=== PATIENT | male | born 1975 | race Caucasian/White ===

== ENCOUNTER 2019-06-12 07:18 | Day surgery (SDC) | payer BC ==
[2019-06-08 12:09] LABS: ALBUMIN 3.9 G/DL (3.4-5.0); ALBUMIN/GLOBULIN RATIO 1.1 (1.1-1.5); ALKALINE PHOSPHATASE 53 IU/L (46-116); BLOOD UREA NITROGEN 15 MG/DL (7-18); BUN/CREATININE RATIO 15.2 (5.4-32.0); CALCIUM 8.5 MG/DL (8.5-10.1); CHLORIDE 103 MMOL/L (99-107); CREATININE 0.99 MG/DL (0.60-1.10); PRE OP ALT 39 U/L (30-65); PRE OP ANION GAP 3 (8-16); PRE OP AST 22 U/L (10-37); PRE OP BILIRUB, TOTAL 0.4 MG/DL (0.0-1.0); PRE OP GLUCOSE 96 MG/DL (70-104); PRE OP POTASSIUM 4.3 MMOL/L (3.4-5.1); PRE OP SODIUM 137 MMOL/L (135-145); TOTAL CARBON DIOXIDE 30.7 MMOL/L (24-32); TOTAL PROTEIN 7.3 G/DL (6.4-8.2); eGFR 82 ML/MIN
[2019-06-08 12:10] LABS: EOSINOPHILS # (AUTO) 0.1 X10'3 (0-0.9); EOSINOPHILS % (AUTO) 2.7 % (0-6); LYMPHOCYTES # (AUTO) 1.2 X10'3 (1.1-4.8); LYMPHOCYTES % (AUTO) 25.7 % (21-51); MEAN CORPUSCULAR HEMOGLOBIN 33.4 PG (27.0-31.0); MEAN CORPUSCULAR HGB CONC 34.9 g/dL (33.0-36.5); MEAN CORPUSCULAR VOLUME 95.8 FL (78-98); MEAN PLATELET VOLUME 8.4 FL (7.4-10.4); MONOCYTES # (AUTO) 0.5 X10'3 (0-0.9); NEUTROPHILS # (AUTO) 2.6 X10'3 (1.8-7.7); NEUTROPHILS % (AUTO) 58.6 % (42-75); PRE OP HEMATOCRIT 41.5 % (42.0-52.0); PRE OP HEMOGLOBIN 14.5 g/dL (14.0-17.9); PRE OP PLATELET COUNT 190 X10'3 (140-440); RED BLOOD COUNT 4.33 X10'6 (4.70-6.10); RED CELL DISTRIBUTION WIDTH 12.9 % (11.5-14.5)
[~2019-06-12] VITALS: Ht 172.7 cm; Wt 128.8 kg
[~2019-06-12 07:18] MED LIST: BUPIVAcaine/PF 2.5mg/ml (0.25%) 10ml vial ONE; CYCL-1 PO; GABA-532 PO; IBUP-1986 PO; LIDOcaine 0.5% (5mg/ml) 50ml vial ONE
[2019-06-12] MEDS ORDERED: ceFAZolin inj. 2,000 MG in dextrose 5%-water 100 ML IV ONE (07:30)
[2019-06-12] MEDS ORDERED: famotidine 20mg tablet PO ONE (07:30)
[2019-06-12] MEDS ORDERED: ringers solution, lacted 1,000 ML IV SCH ×2 (07:30→08:47)
[2019-06-12] MEDS ORDERED: ceFAZolin 1GM/D5W- ADD-VANTAGE 50 ML IV ONE (07:30)
[2019-06-12] MEDS ORDERED: acetaminophen 1,000mg/100ml IV 100 ML IV STA (08:33)
[2019-06-12 08:43] VITALS: BP 121/69
[2019-06-12 08:46] VITALS: BP 121/69
[2019-06-12] MEDS ORDERED: proCHLORperazine 10 MG/2 ml inj IV PRN (08:50)
[2019-06-12] MEDS ORDERED: morphine 4 MG/ML inj SYRINge IV PRN ×2 (08:50)
[2019-06-12] MEDS ORDERED: ondansetron/PF 4mg/2ml inj IV PRN (08:50)
[2019-06-12] MEDS ORDERED: meperidine/PF 25mg/ml syringe IV PRN ×3 (08:50)
[2019-06-12] MEDS ORDERED: fentaNYL/PF 50MCG/1 ML 2ML syringe ONE (09:14)
[2019-06-12] MEDS ORDERED: midazolam 2 mg/2 ml injection ONE (09:14)
[2019-06-12 09:38] VITALS: BP 151/95
--- NOTE | 2019-06-12 09:38 | NUR ---
Received from OR via [facility] , accompanied by Anesthesiologist ROHIT and report given by Anesthesiolgist. PATIENT WITH 20G PIV IN LEFT UE RUNNING LR AT 100. DENIES PAIN, RIGHT WRIST DRESSING CDI, + CAP REFILL AND SENSATION. Addendum: 06/12/19 at 0946 by Daomn Warner RN, RN Amended: Links added.
[2019-06-12 09:48] VITALS: BP 149/91
[2019-06-12 09:58] VITALS: BP 138/88
[2019-06-12 10:08] VITALS: BP 132/82
--- NOTE | 2019-06-12 10:18 | NUR ---
ALL DC CRITERIA HAS BEEN MET. IV TAKEN OUT WITHOUT COMPLICATIONS. ALL INSTRUCTIONS COVERED AND ALL QUESTIONS ANSWERED. DRESSINGS CDI. OUT VIA WHEELCHAIR TO PERSONAL VEHICLE WHERE PATIENT WAS SECURED IN AND DRIVEN HOME BY FAMILY. ICE SENT WITH PATIENT. ALL DC INSTRUCTIONS COVERED WITH AT BEDSIDE WELL. SECURED IN FRONT PASSENGER SEAT WHERE DROVE HIM HOME. DENIES PAIN AND WRIST DRESSING IS CDI. Addendum: 06/12/19 at 1038 by Damon Blake - [place] [facility] Amended: Links added.
== END 2019-06-12 10:18 | disposition home or self-care (01) ==
LOC: PAS 07:18
PROVIDERS: ATTEND Orthopaedic Surgery Hand Surgery
DX: G56.01 Carpal tunnel syndrome, right upper limb (principal); E66.9 Obesity, unspecified; Z68.41 Body mass index [BMI] 40.0-44.9, adult; G47.00 Insomnia, unspecified; Z98.890 Other specified postprocedural states; Z72.89 Other problems related to lifestyle; Z79.899 Other long term (current) drug therapy
CPT/HCPCS: 29848; 36415; 80053; 82948; 85025; 93005; J0131; J0690; J2001; J2250; J3010; J3490; J7060; A4215; A6449; J7120

== ENCOUNTER 2021-04-03 06:35 | Emergency (ER) | payer BC ==
[~2021-04-03] VITALS: Ht 172.7 cm; Wt 131.5 kg
[~2021-04-03 06:35] MED LIST changes: -BUPIVAcaine/PF 2.5mg/ml (0.25%) 10ml vial ONE; -LIDOcaine 0.5% (5mg/ml) 50ml vial ONE
[2021-04-03 07:01] VITALS: BP 129/80
[2021-04-03] MEDS ORDERED: ketorolac trometh. 30mg/ml inj. IM ONE (07:10)
[2021-04-03] MEDS ORDERED: HYDROcodone/acetaminophen 10/325mg tab PO ONE (07:10)
[2021-04-03] MEDS ORDERED: HYDR-3972 PO (09:07)
== END 2021-04-03 09:55 | disposition home or self-care (01) ==
LOC: ER 06:36
DX: M79.652 Pain in left thigh (principal); M25.562 Pain in left knee; G89.29 Other chronic pain; F32.9 Major depressive disorder, single episode, unspecified; Z98.890 Other specified postprocedural states; Z79.899 Other long term (current) drug therapy
CPT/HCPCS: 73564; 93971; 96372; 99284; J1885